=== PATIENT | female | born 1955 | race Caucasian/White ===

== ENCOUNTER 2019-03-30 06:33 | Day surgery (SDC) | payer OTHER ==
[2019-03-30] MEDS ORDERED: Lactated Ringers 1,000 ML IV SCH (07:00)
[2019-03-30] MEDS ORDERED: fentaNYL 100 MCG/2 ML SDV ONE (07:22)
[2019-03-30] MEDS ORDERED: Propofol 200 MG/20 ML SDV ONE (07:23)
[2019-03-30] MEDS ORDERED: Midazolam 1 MG/ML 2 ML SDV ONE (07:23)
--- NOTE | 2019-03-30 13:36 | OR ---
DATE OF PROCEDURE: 03/30/2019 PREOPERATIVE DIAGNOSIS: Positive Cologuard. POSTOPERATIVE DIAGNOSES: Positive Cologuard; a medium-size polyp, 35 cm from the anal verge; diverticulosis. PROCEDURE: Colonoscopy to the cecum with snare cautery polypectomy, 35 cm from the anal verge. SURGEON: Eliecer Kerr MD ANESTHESIA: IV anesthesia with monitored anesthesia care. INDICATION: This 64-year-old white female is referred for a colonoscopy because of positive Cologuard. She has never had a colonoscopic exam. I counseled her for the procedure, including risks and alternatives, and she gave her informed consent to proceed. DESCRIPTION OF PROCEDURE: The patient was placed in the left lateral decubitus position. IV anesthesia was administered by the Anesthesia Service. Time-out was held. A rectal exam was performed, which was unremarkable. The flexible video Olympus colonoscope was introduced through her anus, up her rectum and out her colon, all the way to the cecum. En route to the cecum, we saw a few scattered small left-sided diverticula. There was no bleeding or inflammation associated with them. Once the cecum was reached, the scope was slowly withdrawn, examining the mucosa throughout. No additional mucosal abnormalities were noted until we reached 35 cm from the anal verge. Here, we saw a pedunculated polyp. The snare was passed about its base, it was elevated up away from the bowel wall and amputated as electrocautery was applied. The polyp was aspirated up through the scope and captured in a polyp trap. The scope was withdrawn further with no other lesions noted. The scope was retroflexed in the rectum with the distal rectum appearing unremarkable. The scope was straightened and removed. She tolerated the procedure well. Eliecer Kerr MD /[id number]
== END 2019-03-30 09:50 | disposition home or self-care (01) ==
LOC: JP.SDS 06:33
PROVIDERS: ATTEND Surgery
DX: D12.5 Benign neoplasm of sigmoid colon (principal); K57.30 Diverticulosis of large intestine without perforation or abscess without bleeding; J45.909 Unspecified asthma, uncomplicated; R73.01 Impaired fasting glucose
CPT/HCPCS: 45385; J2250; J2704; J3010; J7120

== ENCOUNTER 2024-06-22 07:33 | Day surgery (SDC) | payer MEDICARE, OTHER ==
[2024-06-22] MEDS ORDERED: Propofol 200 MG/20 ML SDV ONE (08:02)
[2024-06-22] MEDS ORDERED: fentaNYL 50 MCG/ML SDV ONE (08:03)
[2024-06-22] MEDS: Lactated Ringers 1,000 ML IV SCH (08:15)
== END 2024-06-22 10:09 | disposition home or self-care (01) ==
LOC: JP.SDS 07:33
PROVIDERS: ATTEND Family Medicine
DX: Z12.11 Encounter for screening for malignant neoplasm of colon (principal); Z86.0100 Personal history of colon polyps, unspecified
CPT/HCPCS: G0105; J2704; J3010; J7120; 00812-QZ; 45378